=== PATIENT | female | born 1945 | race Caucasian/White ===

== ENCOUNTER 2020-08-21 21:56 | Emergency (ER) | payer OTHER ==
[~2020-08-21] VITALS: Ht 162.6 cm; Wt 45.4 kg
[2020-08-21] MEDS ORDERED: INDAPAMIDE2.5 MG PO (22:08)
[2020-08-21] MEDS ORDERED: TOPROL XL25 M1 PO (22:09)
[2020-08-21] MEDS ORDERED: CHILDREN'S ASPI81 MG PO (22:09)
[2020-08-21] MEDS ORDERED: FOLIC ACID0.8 M1 PO (22:09)
[2020-08-21] MEDS ORDERED: ATORVASTATIN CA40 MG PO (22:09)
[2020-08-21] MEDS ORDERED: AMLODIPINE-OLM1 EAC2 (22:09)
[2020-08-21] MEDS ORDERED: AVAPRO300 MG PO (22:10)
[2020-08-22] MEDS ORDERED: CEFADROXIL500 MG/5 M PO (07:53)
== END 2020-08-22 10:36 | disposition home or self-care (01) ==
LOC: ER 21:56
DX: N39.0 Urinary tract infection, site not specified (principal); C44.311 Basal cell carcinoma of skin of nose; Z03.818 Encounter for observation for suspected exposure to other biological agents ruled out; R50.9 Fever, unspecified; R60.0 Localized edema